=== PATIENT | female | born 1960 | race Caucasian/White ===

== ENCOUNTER 2021-09-30 12:52 | Emergency (ER) | payer OTHER ==
[2021-09-30] MEDS ORDERED: NORCO 5-325 TA1 EACH PO (16:15)
== END 2021-09-30 16:52 | disposition home or self-care (01) ==
LOC: FER 12:52
DX: S82.141A Displaced bicondylar fracture of right tibia, initial encounter for closed fracture (principal); W17.89XA Other fall from one level to another, initial encounter; Y92.009 Unspecified place in unspecified non-institutional (private) residence as the place of occurrence of the external cause
CPT/HCPCS: 73564; 73700